=== PATIENT | male | born 1965 | race Caucasian/White ===

== ENCOUNTER 2017-01-25 17:40 | Inpatient (IN) | payer BC ==
[~2017-01-25] VITALS: Ht 172.7 cm; Wt 94.8 kg
[2017-01-25 17:47] VITALS: BP 183/92
[2017-01-25] MEDS ORDERED: ASPIRIN 325 MG TAB PO ONE (18:00)
[2017-01-25 18:14] LABS: BASOPHILS # (AUTO) 0.1 K/uL (0.00-0.22); BASOPHILS % (AUTO) 2.4 % (0.0-2.0); EOSINOPHILS # (AUTO) 0.2 K/uL (0-0.4); EOSINOPHILS % (AUTO) 2.8 % (0.0-4.0); HEMATOCRIT 42.2 % (36-52); HEMOGLOBIN 14.3 g/dL (12.0-18.0); LYMPHOCYTES # (AUTO) 1.8 K/uL (2.0-11.5); LYMPHOCYTES % (AUTO) 30.4 % (20.5-51.1); MEAN CORPUSCULAR HEMOGLOBIN 29 pg (27-31); MEAN CORPUSCULAR HGB CONC 34 g/dL (33-37); MEAN CORPUSCULAR VOLUME 85 fL (80-94); MONOCYTES # (AUTO) 0.3 K/uL (0.8-1.0); MONOCYTES % (AUTO) 5.7 % (1.7-9.3); NEUTROPHILS # (AUTO) 3.7 K/uL (1.8-7.7); NEUTROPHILS % (AUTO) 58.7 % (42.2-75.2); PLATELET COUNT (AUTO) 188 K/uL (140-450); RED BLOOD CELL COUNT(AUTO) 4.95 MIL/uL (4.20-6.10); RED CELL DISTRIBUTION WIDTH 12.6 % (11.6-13.7); WHITE BLOOD COUNT (AUTO) 6.1 K/uL (4.8-10.8)
[2017-01-25 18:29] LABS: ANION GAP 12.4 (8-16); CARBON DIOXIDE 27.1 mmol/L (21-32); CREATININE 1.1 mg/dL (0.7-1.3); POTASSIUM 3.5 mmol/L (3.5-5.1)
[2017-01-25 18:37] LABS: ALBUMIN 3.8 g/dL (3.4-5.0); TOTAL BILIRUBIN 0.5 mg/dL (0.0-1.0)
[2017-01-25] MEDS ORDERED: KETOROLAC 30 MG/ML VIAL IVP ONE (18:45)
[2017-01-25 18:48] LABS: CREATINE KINASE MB 1.7 ng/mL (0-3.6)
[2017-01-25] MEDS ORDERED: DOCUSATE SODIUM 100 MG GELCAP PO PRN (19:05)
[2017-01-25] MEDS ORDERED: ACETAMINOPHEN 325 MG TAB PO PRN (19:05)
[2017-01-25] MEDS ORDERED: ONDANSETRON 4 MG/2 ML VIAL IM/IVP PRN (19:05)
[2017-01-25] MEDS ORDERED: MORPHINE SULFATE 2 MG/ML SYR IVP PRN (19:05)
[2017-01-25] MEDS ORDERED: HYDROcodone/APAP 7.5/325 MG 1 TAB PO PRN (19:05)
[2017-01-25 19:25] LABS: PROTHROMBIN TIME 10.2 secs (10.8-13.4)
[2017-01-25 19:35] LABS: AMYLASE 71 U/L (25-115); CHOL/HDL RATIO 8.4 (1-4.5); FREE T4 (FREE THYROXINE) 0.89 ng/dL (0.76-1.46); HDL CHOLESTEROL 22 mg/dL (40-60); PHOSPHORUS 3.7 mg/dL (2.5-4.9); THYROID STIMULATING HORMONE 1.65 uIU/mL (0.34-3.74); TRIGLYCERIDES 962 mg/dL (30-150)
[2017-01-25 21:50] VITALS: BP 144/98
[2017-01-25 21:54] LABS: APPEARANCE,URINE CLEAR (CLEAR); BILIRUBIN,URINE NEGATIVE (NEGATIVE); BLOOD, URINE TRACE-I (NEGATIVE); COLOR,URINE YELLOW (YELLOW); LEUKOCYTE ESTERASE ,URINE NEGATIVE (NEGATIVE); NITRITE, URINE NEGATIVE (NEGATIVE); UGLUCOSE NEGATIVE (NEGATIVE)
[2017-01-25 22:01] LABS: BARBITURATE, URINE NEG. ng/ml (NEG <=200); BENZODIAZEPINE, URINE NEG. ng/mL (NEG <=200); CANNABINOID, URINE NEG. ng/mL (NEG <=50); COCAINE, URINE NEG. ng/mL (NEG <=300); OPIATE, URINE NEG. ng/mL (NEG <=2000); PHENCYCLIDINE SCREEN,URINE NEG. ng/mL (NEG <=25)
[2017-01-25 22:10] LABS: RBC,URINE 0-5 (RARE) /HPF (0-5); WBC,URINE NONE SEEN /HPF (0-5)
[2017-01-25] MEDS: NACL 0.9% 1,000 ML IV SCH (22:33)
[2017-01-25] MEDS ORDERED: NITROGLYCERIN 0.4 MG TAB SL PRN (23:35)
[2017-01-25] MEDS ORDERED: METOPROLOL 25 MG TAB PO SCH (23:40)
[2017-01-25] MEDS ORDERED: FENOFIBRATE 48 MG TAB PO SCH (23:40)
[2017-01-26] VITALS: BP 125/85
[2017-01-26] MEDS ORDERED: LISINOPRIL 5 MG TAB PO SCH (00:05)
[2017-01-26 04:00] VITALS: BP 108/96
[2017-01-26] MEDS: NACL 0.9% 1,000 ML IV SCH ×3 (05:02→22:23)
[2017-01-26 07:47] VITALS: BP 132/63
[2017-01-26 08:14] LABS: T4 (THYROXINE) 7.8 ug/dL (4.5-12.0)
[2017-01-26] MEDS ORDERED: PANTOPRAZOLE 40 MG TABEC PO SCH (08:40)
[2017-01-26] MEDS ORDERED: METOPROLOL 25 MG TAB PO SCH (09:00)
[2017-01-26] MEDS: LISINOPRIL 5 MG TAB PO SCH (09:06)
[2017-01-26] MEDS: METOPROLOL 25 MG TAB PO SCH ×2 (09:08→21:30)
[2017-01-26] MEDS: ECOTRIN 81 MG TABEC PO SCH (09:08)
[2017-01-26] MEDS: FENOFIBRATE 48 MG TAB PO SCH (09:09)
[2017-01-26 11:52] LABS: BASOPHILS # (AUTO) 0.2 K/uL (0.00-0.22); BASOPHILS % (AUTO) 3.7 % (0.0-2.0); EOSINOPHILS # (AUTO) 0.1 K/uL (0-0.4); EOSINOPHILS % (AUTO) 1.3 % (0.0-4.0); HEMATOCRIT 42.7 % (36-52); HEMOGLOBIN 14.3 g/dL (12.0-18.0); LYMPHOCYTES # (AUTO) 1.8 K/uL (2.0-11.5); LYMPHOCYTES % (AUTO) 30.1 % (20.5-51.1); MEAN CORPUSCULAR HEMOGLOBIN 29 pg (27-31); MEAN CORPUSCULAR HGB CONC 34 g/dL (33-37); MEAN CORPUSCULAR VOLUME 86 fL (80-94); MONOCYTES # (AUTO) 0.4 K/uL (0.8-1.0); NEUTROPHILS # (AUTO) 3.5 K/uL (1.8-7.7); NEUTROPHILS % (AUTO) 57.9 % (42.2-75.2); PLATELET COUNT (AUTO) 171 K/uL (140-450); RED BLOOD CELL COUNT(AUTO) 4.96 MIL/uL (4.20-6.10); RED CELL DISTRIBUTION WIDTH 12.5 % (11.6-13.7)
[2017-01-26 12:00] VITALS: BP 143/91
[2017-01-26 13:17] LABS: POTASSIUM 3.4 mmol/L (3.5-5.1)
[2017-01-26 13:18] LABS: ANION GAP 10.8 (8-16); CARBON DIOXIDE 27.6 mmol/L (21-32); CREATININE 0.9 mg/dL (0.7-1.3)
[2017-01-26] MEDS ORDERED: ATORVASTATIN 20 MG TAB PO SCH (17:00)
[2017-01-26 18:00] VITALS: BP 144/84
[2017-01-26 20:00] VITALS: BP 143/83
[2017-01-27] VITALS: BP 114/50
[2017-01-27] MEDS: NACL 0.9% 1,000 ML IV SCH (01:02)
[2017-01-27 04:00] VITALS: BP 116/64
[2017-01-27] MEDS ORDERED: PANTOPRAZOLE 40 MG TABEC PO SCH (06:30)
[2017-01-27 07:10] LABS: BASOPHILS # (AUTO) 0.2 K/uL (0.00-0.22); BASOPHILS % (AUTO) 3.4 % (0.0-2.0); EOSINOPHILS # (AUTO) 0.2 K/uL (0-0.4); EOSINOPHILS % (AUTO) 2.6 % (0.0-4.0); HEMATOCRIT 43.2 % (36-52); HEMOGLOBIN 14.4 g/dL (12.0-18.0); LYMPHOCYTES # (AUTO) 1.7 K/uL (2.0-11.5); LYMPHOCYTES % (AUTO) 23.5 % (20.5-51.1); MEAN CORPUSCULAR HEMOGLOBIN 29 pg (27-31); MEAN CORPUSCULAR HGB CONC 33 g/dL (33-37); MEAN CORPUSCULAR VOLUME 87 fL (80-94); MONOCYTES # (AUTO) 0.5 K/uL (0.8-1.0); MONOCYTES % (AUTO) 7.3 % (1.7-9.3); NEUTROPHILS # (AUTO) 4.5 K/uL (1.8-7.7); NEUTROPHILS % (AUTO) 63.2 % (42.2-75.2); PLATELET COUNT (AUTO) 177 K/uL (140-450); RED BLOOD CELL COUNT(AUTO) 4.98 MIL/uL (4.20-6.10); RED CELL DISTRIBUTION WIDTH 12.6 % (11.6-13.7); WHITE BLOOD COUNT (AUTO) 7.1 K/uL (4.8-10.8)
[2017-01-27 07:27] LABS: ANION GAP 9.5 (8-16); CARBON DIOXIDE 28.2 mmol/L (21-32); POTASSIUM 3.7 mmol/L (3.5-5.1)
[2017-01-27 07:32] LABS: PHOSPHORUS 2.8 mg/dL (2.5-4.9)
[2017-01-27 08:00] VITALS: BP 134/94
[2017-01-27] MEDS: LISINOPRIL 5 MG TAB PO SCH (08:49)
[2017-01-27] MEDS: FENOFIBRATE 48 MG TAB PO SCH (08:49)
[2017-01-27] MEDS: METOPROLOL 25 MG TAB PO SCH (08:50)
[2017-01-27] MEDS: ECOTRIN 81 MG TABEC PO SCH (08:50)
[2017-01-27] MEDS ORDERED: ATOR20TA40 PO (10:05)
[2017-01-27] MEDS ORDERED: PANT40EC28 PO (10:05)
[2017-01-27] MEDS ORDERED: TRI48 PO (10:05)
[2017-01-27 10:22] VITALS: BP 134/94
== END 2017-01-27 10:50 | disposition home or self-care (01) | DRG 392 ==
LOC: MED 17:40 → MTU 19:07
PROVIDERS: ADMIT Family Medicine; ATTEND Family Medicine
DX: K21.9 Gastro-esophageal reflux disease without esophagitis (principal); E78.2 Mixed hyperlipidemia; R31.9 Hematuria, unspecified
CPT/HCPCS: 36415; 71010; 76770; 80048; 80053; 80305; 81001; 82150; 82550; 82553; 83036; 83690; 83735; 83880; 84100; 84436; 84439; 84443; 84479; 84484; 85025; 85610; 85730; 87081; 93005; 96374; 99285; J1885; J2270; J7030; Q0092

== ENCOUNTER 2020-05-11 20:46 | Emergency (ER) | payer BC ==
[~2020-05-11] VITALS: Ht 170.2 cm; Wt 93.0 kg
[2020-05-11 20:46] VITALS: BP 134/97
[~2020-05-11 20:46] MED LIST: ATOR20TA40 PO; PANT40EC56 PO; TRI48 PO
--- NOTE | 2020-05-11 20:46 | NUR ---
AILIN MARTIN. TAKEN TO BED 1
--- NOTE | 2020-05-11 21:00 | NUR ---
20G IV LINE ESTABLISHED PREH[facility], IV LINE FLUSHED AND PATENT.
--- NOTE | 2020-05-11 21:00 | NUR ---
SEE COMPLETE ASSESSMENT .
[2020-05-11 21:39] LABS: BASOPHILS % (AUTO) 0.6 % (0.0-2.0); EOSINOPHILS # (AUTO) 0.1 K/uL (0-0.4); HEMATOCRIT 42.9 % (36-52); HEMOGLOBIN 14.7 g/dL (12.0-18.0); LYMPHOCYTES % (AUTO) 26.8 % (20.5-51.1); MEAN CORPUSCULAR HEMOGLOBIN 29 pg (27-31); MEAN CORPUSCULAR HGB CONC 34 g/dL (33-37); MEAN CORPUSCULAR VOLUME 85.7 fL (80-94); MONOCYTES # (AUTO) 0.4 K/uL (0.8-1.0); MONOCYTES % (AUTO) 5.7 % (1.7-9.3); NEUTROPHILS # (AUTO) 4.8 K/uL (1.8-7.7); NEUTROPHILS % (AUTO) 64.9 % (42.2-75.2); PLATELET COUNT (AUTO) 200 K/uL (140-450); RED CELL DISTRIBUTION WIDTH 13.4 % (11.6-13.7); WHITE BLOOD COUNT (AUTO) 7.4 K/uL (4.8-10.8)
[2020-05-11 21:58] LABS: ALBUMIN 4.1 g/dL (3.4-5.0); ANION GAP 12.9 (8-16); CARBON DIOXIDE 28.5 mmol/L (21-32); POTASSIUM 3.4 mmol/L (3.5-5.1); TOTAL BILIRUBIN 0.6 mg/dL (0.0-1.0)
[2020-05-11] MEDS: ACETAMINOPHEN 325 MG TAB PO ONE (23:34)
[2020-05-12 00:14] VITALS: BP 133/82
--- NOTE | 2020-05-12 00:14 | NUR ---
Patient discharged with v/s stable. Written and verbal after care instructions given and explained. Patient alert, oriented and verbalized understanding of instructions. Ambulatory with steady gait. All questions addressed prior to discharge. ID band removed. Patient advised to follow up with PMD. Rx of atorvastatin, aspirin, and fenofibrate given. Patient educated on indication of medication including possible reaction and side effects. Opportunity to ask questions provided and answered.
== END 2020-05-12 00:14 | disposition home or self-care (01) ==
LOC: MED 20:46
DX: R07.9 Chest pain, unspecified (principal); F43.20 Adjustment disorder, unspecified; Z79.899 Other long term (current) drug therapy; Z98.890 Other specified postprocedural states
CPT/HCPCS: 36415; 71045; 80053; 83690; 84484; 85025; 93005; 99285